=== PATIENT | male | born 2000 | race Caucasian/White ===

== ENCOUNTER 2022-05-22 09:56 | Emergency (ER) | payer MEDICAID, OTHER ==
[~2022-05-22] VITALS: Ht 170.2 cm; Wt 130.0 kg
[2022-05-22] MEDS ORDERED: LIDOCAINE 5% TRANSDERMAL PATCH TD ONE (11:45)
[2022-05-22] MEDS ORDERED: IBUPROFEN 600 MG TABLET PO ONE (11:45)
[2022-05-22] MEDS ORDERED: LIDO700A15 TP (13:01)
[2022-05-22] MEDS ORDERED: IBUP-1492 PO (13:02)
[2022-05-22 13:09] VITALS: BP 121/61
== END 2022-05-22 13:32 | disposition home or self-care (01) ==
LOC: EMS 10:02
DX: S29.011A Strain of muscle and tendon of front wall of thorax, initial encounter (principal); X58.XXXA Exposure to other specified factors, initial encounter; Y93.75 Activity, martial arts; Y92.89 Other specified places as the place of occurrence of the external cause; Y99.8 Other external cause status
CPT/HCPCS: 71046; 99283